=== PATIENT | male | born 1955 | race Caucasian/White ===

== ENCOUNTER 2017-01-05 02:10 | Inpatient (IN) | payer BC ==
[~2017-01-05] VITALS: Ht 185.4 cm; Wt 103.5 kg
[2017-01-05 02:10] VITALS: BP_SYST 152
[2017-01-05] MEDS ORDERED: NACL 0.9% 1,000 ML IV ONE (02:15)
[2017-01-05] MEDS ORDERED: fentaNYL CITRATE/PF 100 MCG/2 ML AMP IVP ONE ×2 (02:15→05:00)
[2017-01-05 02:51] LABS: BASOPHILS % (AUTO) 0.7 % (0.0-2.0); EOSINOPHILS # (AUTO) 0.1 K/uL (0.0-0.4); EOSINOPHILS % (AUTO) 1.9 % (0.0-4.0); HEMATOCRIT 39.3 % (36-54); HEMOGLOBIN 13.6 g/dL (14.0-18.0); LYMPHOCYTES # (AUTO) 1.1 K/uL (1.0-5.5); LYMPHOCYTES % (AUTO) 23.9 % (20.5-51.5); MEAN CORPUSCULAR HEMOGLOBIN 34 pg (27-31); MEAN CORPUSCULAR HGB CONC 35 % (32-36); MEAN CORPUSCULAR VOLUME 97 fL (79.0-98.0); MONOCYTES # (AUTO) 0.8 K/uL (0.0-1.0); MONOCYTES % (AUTO) 16.6 % (1.7-9.3); NEUTROPHILS # (AUTO) 2.8 K/uL (1.8-7.7); NEUTROPHILS % (AUTO) 56.9 % (40.0-70.0); PLATELET COUNT (AUTO) 248 K/uL (130-430); RED BLOOD CELL COUNT(AUTO) 4.07 MIL/uL (4.2-6.2); WHITE BLOOD COUNT (AUTO) 4.8 K/uL (4.8-10.8)
[2017-01-05 03:01] LABS: ANION GAP 11 (5-15); CALCIUM 8.7 mg/dL (8.4-11.0); CHLORIDE 108 mmol/L (98-107); CREATININE 1.29 mg/dL (0.55-1.30); GLUCOSE 139 mg/dL (70-99); SODIUM SERUM 145 mmol/L (136-145); UREA NITROGEN, BLOOD 24 mg/dL (8-21)
[2017-01-05 03:03] LABS: GFR AFRICAN AMERICAN 72 mL/min (>90)
[2017-01-05 03:04] LABS: PROTHROMBIN TIME 10.1 SECS (9.5-12.5)
[2017-01-05 03:09] LABS: ALANINE AMINOTRANSFERASE 30 U/L (12-78); ALBUMIN 3.6 g/dL (3.4-4.8); ASPARTATE AMINOTRANSFERASE 18 U/L (10-37); TOTAL BILIRUBIN 1.4 mg/dL (0.0-1.0)
[2017-01-05] MEDS ORDERED: LEVO125T8 PO (04:56)
[2017-01-05] MEDS ORDERED: PRAV20TA PO (04:58)
[2017-01-05] MEDS ORDERED: ALFU10TA19 PO (04:58)
[2017-01-05] MEDS ORDERED: LORazepam 2 MG/ML VIAL (FOR ER USE) IVP ONE (05:00)
[2017-01-05 06:00] VITALS: BP_SYST 118
[2017-01-05] MEDS: LEVOTHYROXINE SODIUM 0.125 MG TABLET PO SCH (06:53)
[2017-01-05 08:00] VITALS: BP_SYST 135
[2017-01-05] MEDS: CYCLOBENZAPRINE HCL 10 MG TABLET (FLEXERIL) PO SCH ×3 (10:03→21:24)
[2017-01-05 12:30] VITALS: BP_SYST 108
[2017-01-05 16:46] VITALS: BP_SYST 112
[2017-01-05 19:20] VITALS: BP_SYST 115
[2017-01-05] MEDS ORDERED: PRAVASTATIN SODIUM 20 MG TABLET (PRAVACHOL) PO SCH (21:00)
[2017-01-05] MEDS ORDERED: NON-FORMULARY MEDICATION (Alfuzosin Hcl 10 MG) PO SCH (21:00)
[2017-01-05] MEDS ORDERED: TAMSULOSIN HCL 0.4 MG CAP PO SCH (21:00)
[2017-01-05] MEDS ORDERED: SIMVASTATIN 10 MG TABLET PO SCH (21:00)
[2017-01-05] MEDS: NORMAL SALINE 5 ML DISP.SYRIN IVF SCH (21:28)
[2017-01-05] MEDS: HYDROcodone/ACETAMIN 10-325 MG TAB PO PRN (22:09)
[2017-01-05] MEDS ORDERED: MORPHINE SULFATE 10 MG/ML VIAL IVP ONE (23:00)
[2017-01-06] MEDS ORDERED: MORPHINE SULFATE 10 MG/ML VIAL IVP PRN (00:15)
[2017-01-06 01:02] VITALS: BP_SYST 146
[2017-01-06] MEDS: LEVOTHYROXINE SODIUM 0.125 MG TABLET PO SCH (06:15)
[2017-01-06] MEDS: NORMAL SALINE 5 ML DISP.SYRIN IVF SCH ×2 (06:16→13:45)
[2017-01-06 06:33] VITALS: BP_SYST 148
[2017-01-06] MEDS: CYCLOBENZAPRINE HCL 10 MG TABLET (FLEXERIL) PO SCH ×2 (08:59→15:41)
[2017-01-06 09:16] VITALS: BP_SYST 130
[2017-01-06 12:00] VITALS: BP_SYST 155
[2017-01-06] MEDS: HYDROcodone/ACETAMIN 10-325 MG TAB PO PRN (13:45)
[2017-01-06 16:32] VITALS: BP_SYST 151
[2017-01-06 18:24] VITALS: BP_SYST 151
== END 2017-01-06 18:55 | DRG 563 ==
LOC: SED 02:10 → SMU 05:10
PROVIDERS: ADMIT Specialist; ATTEND Specialist
DX: S39.012A Strain of muscle, fascia and tendon of lower back, initial encounter (principal); N13.8 Other obstructive and reflux uropathy; E06.3 Autoimmune thyroiditis; Z96.41 Presence of insulin pump (external) (internal); X58.XXXA Exposure to other specified factors, initial encounter; E10.9 Type 1 diabetes mellitus without complications; E53.8 Deficiency of other specified B group vitamins; E55.9 Vitamin D deficiency, unspecified; E66.9 Obesity, unspecified; E78.2 Mixed hyperlipidemia; N40.1 Benign prostatic hyperplasia with lower urinary tract symptoms; Z79.4 Long term (current) use of insulin; Y93.89 Activity, other specified; Y92.89 Other specified places as the place of occurrence of the external cause; Y99.8 Other external cause status; Z68.30 Body mass index [BMI] 30.0-30.9, adult
CPT/HCPCS: 36415; 72131; 80053; 82962; 84484; 85025; 85610-TC; 85730-TC; 93005; 96374; 96375; 97110-GP; 97116-GP; 97530-GP; 99285; J2060; J2270; J3010; J7030

== ENCOUNTER 2019-04-18 11:44 | Inpatient (IN) | payer BC, OTHER ==
[~2019-04-18] VITALS: Ht 185.4 cm; Wt 98.9 kg
[~2019-04-18 11:44] MED LIST: ALFU10TA19 PO; LEVO125T8 PO; PRAV20TA PO
--- NOTE | 2019-04-18 11:50 | NUR ---
Placed in room 02 . Placed on ekg monitor tech, blood pressure machine and pulse oximeter. To gown for exam. Side rails up. Report given to Julia GUALLPA.
[2019-04-18 11:56] VITALS: BP_SYST 147
--- NOTE | 2019-04-18 11:58 | NUR ---
Patient AAO x 4 BIB ACLS s/p syncopal episode found by son. Patient has a laceration to L occipital head and localized 3/10 pain to L chest. Patient reports feeling dizzy/nauseus and abdominal pain prior to incident. Denies abdominal pain now by dizziness and nausea remain. Patient has history of DM1 with glucose sensor to L abdomen for insulin pump. Accucheck was 155 on triage. Even chest rise and fall with respirations. Will continue to monitor.
[2019-04-18] MEDS ORDERED: LEVO100V IV (12:05)
[2019-04-18] MEDS ORDERED: TADA5TAB3 PO (12:05)
[2019-04-18] MEDS ORDERED: ROSU10TA2 PO (12:05)
[2019-04-18] MEDS ORDERED: ALFU10TA19 PO (12:05)
[2019-04-18] MEDS ORDERED: CELE200C PO (12:05)
[2019-04-18 12:25] LABS: BASOPHILS % (AUTO) 0.3 % (0.0-2.0); EOSINOPHILS % (AUTO) 0.4 % (0.0-4.0); HEMATOCRIT 41.2 % (36-54); HEMOGLOBIN 14.1 g/dL (14.0-18.0); LYMPHOCYTES # (AUTO) 0.2 K/uL (1.0-5.5); LYMPHOCYTES % (AUTO) 2.4 % (20.5-51.5); MEAN CORPUSCULAR HEMOGLOBIN 34 pg (27-31); MEAN CORPUSCULAR HGB CONC 34 % (32-36); MEAN CORPUSCULAR VOLUME 100 fL (79.0-98.0); MONOCYTES # (AUTO) 0.4 K/uL (0.0-1.0); MONOCYTES % (AUTO) 5.2 % (1.7-9.3); NEUTROPHILS # (AUTO) 7.6 K/uL (1.8-7.7); NEUTROPHILS % (AUTO) 91.7 % (40.0-70.0); PLATELET COUNT (AUTO) 236 K/uL (130-430); RED BLOOD CELL COUNT(AUTO) 4.12 MIL/uL (4.2-6.2); RED CELL DISTRIBUTION WIDTH 14.9 % (9.0-15.0); WHITE BLOOD COUNT (AUTO) 8.3 K/uL (4.8-10.8)
[2019-04-18 12:36] LABS: CALCIUM 8.2 mg/dL (8.4-11.0); CREATININE 1.42 mg/dL (0.55-1.30); POTASSIUM 4.3 mmol/L (3.5-5.1)
--- NOTE | 2019-04-18 12:40 | NUR ---
2 episodes of non-bloody emesis. Dr. Baez notified.
[2019-04-18] MEDS ORDERED: ONDANSETRON HCL 4 MG/2 ML VIAL IVP ONE (12:45)
--- NOTE | 2019-04-18 12:45 | NUR ---
Zofran 4mg IVP administered. Pt tachypneic, shaking, reports "I'm freezing." Temp 100.4.
[2019-04-18 12:49] LABS: ALBUMIN 3.6 g/dL (3.4-4.8); TOTAL BILIRUBIN 2.1 mg/dL (0.0-1.0)
--- NOTE | 2019-04-18 12:50 | NUR ---
Dr. Candelario at bedside examining pt
[2019-04-18] MEDS ORDERED: NACL 0.9% 1,000 ML IV ONE ×2 (13:00→14:15)
--- NOTE | 2019-04-18 13:28 | NUR ---
Patient taken to radiology.
--- NOTE | 2019-04-18 14:01 | NUR ---
. Pt , Cynthia called, for update on pt. Would like to be notified of any change in pt status.
[2019-04-18] MEDS ORDERED: LIDOCAINE 1% 10 MG/ML, 20 ML MDV SUBCUT ONE (14:45)
[2019-04-18] MEDS ORDERED: cefTRIAXone 1 GM in D5W 50 ML IV ONE (15:00)
[2019-04-18] MEDS ORDERED: OSELTAMIVIR PHOSPHATE 75 MG CAPSULE PO ONE (15:00)
[2019-04-18] MEDS ORDERED: LIDOCAINE JELLY 5 ML TUBE MM ONE (15:00)
--- NOTE | 2019-04-18 15:19 | NUR ---
Patient medicated lidocaine jelly for laceration per MD order. Patient resting at this time. Addendum: 04/18/19 at 1521 by JAZIEL Note made by
[2019-04-18] MEDS ORDERED: cefTRIAXone 1 GM VIAL ONE (15:22)
--- NOTE | 2019-04-18 16:02 | NUR ---
Patient will be admitted to care of Dr. Dee. Admitted to telemetry unit. Will go to room 101A. Belongings list completed. Complete and up to date summary report printed. SBAR report to be given at bedside with opportunity for questions.
--- NOTE | 2019-04-18 16:10 | NUR ---
Admission Note Received patient from ER with diagnosis of PNEUMONIA/SYNCOPE. Initial Plan of Care discussed-patient verbalized understanding. Oriented to room, call light, pain management and safety.
[2019-04-18 16:27] LABS: BILIRUBIN,URINE NEGATIVE (NEGATIVE); BLOOD, URINE NEGATIVE (NEGATIVE); CLARITY/URINE CLEAR (CLEAR); COLOR,URINE YELLOW (YELLOW); GLUCOSE,URINE 2+ (NEGATIVE); KETONES,URINE 1+ (NEGATIVE); LEUKOCYTE ESTERASE ,URINE NEGATIVE (NEGATIVE); NITRITE, URINE NEGATIVE (NEGATIVE); PH,URINE 5.5 (5.0-8.0); PROTEIN URINE NEGATIVE (NEGATIVE); UROBILINOGEN,URINE 0.2 (0.2-1.0)
--- NOTE | 2019-04-18 16:30 | NUR ---
OPENING NOTES RECEIVED PT FROM E.R., PT IS AAOX4, HAS SLIGHT TEMP. NS FROM E.R. CONTINUED UNTIL COMPLETION. PT ADMITTED FOR PNA AND SYCOPAL EPISODE. PT C/O FO PAIN ON LEFT CHEST WALL. SAFETY PRECAUTION IN PLACE. CALL LIGHT IN REACH. BED IN LOW POSITION. ENCOURAGED PATIENT TO CALL FOR ASSIST AND PAIN MED AND ANY CONCERNS. WILL CONT TO MONITOR.
[2019-04-18 16:40] VITALS: BP_SYST 119
[2019-04-18] MEDS: KCL 20 mEq in NS 1000 mL 1,000 ML IV SCH (17:34)
--- NOTE | 2019-04-18 19:00 | NUR ---
CLOSING NOTES, PT HAS BEEN STABLE, ON AND OFF PAIN ON LEFT CHEST WALL, PROVIDED WITH COLD COMPRESS. PT ATE DINNER. IV FLUIDS INFUSING WELL ON R. AC , NO SWELLING. WILL ENDORSE TO NIGHT NURSE.
--- NOTE | 2019-04-18 19:20 | NUR ---
OPENING NOTES PATIENT AOX4. PATIENT VERBALIZED 5/10 LEFT UPPER CHEST PAIN. MD MADE AWARE OF PATIENTS COMPLAINTS, ORDERED EKG STAT. MD VERBALIZED HE WILL COME AND SEE THE PATIENT. NO SIGNS OF RESPIRATORY DISTRESS NOTED. IVF INFUSING WELL, PATENCY NOTED. CALL LIGHT WITH REACH. PATIENT EDUCATED TO USE CALL LIGHT WHEN ASSISTANCE IS NEEDED, PATIENT VERBALIZED UNDERSTANDING. BED LOCKED AND IN LOWEST POSITION. BED ALARM ON. SAFETY PRECAUTIONS IN PLACE. WILL CONTINUE TO MONITOR PATIENT.
[2019-04-18 20:00] VITALS: BP_SYST 121
--- NOTE | 2019-04-18 21:11 | NUR ---
MD ROUNDS DR. AREVALO CAME AND SEE THE PATIENT. MD VERBALIZED HE WILL PUT ORDERS. NO SIGNS OF RESPIRATORY DISTRESS NOTED. BREATHING EVEN AND UNLABORED. SAFETY PRECAUTIONS IN PLACE. WILL CONTINUE TO MONITOR PATIENT.
[2019-04-18] MEDS ORDERED: ACETAMINOPHEN 325 MG TABLET PO PRN (21:30)
[2019-04-18] MEDS ORDERED: CELECOXIB 200 MG CAPSULE PO SCH (21:30)
[2019-04-18] MEDS: ATORVASTATIN 20 MG TABLET PO SCH (21:52)
[2019-04-18] MEDS: KETOROLAC TROMETHAMINE 15 MG VIAL IVP PRN (21:53)
--- NOTE | 2019-04-18 21:53 | NUR ---
PAIN PATIENT VERBALIZED 6/10 CHEST PAIN. MD ORDERED MEDICATION FOR PAIN. TORADOL 15MG IVP, PATIENT TOLERATED WELL. WILL RE ASSESS. NO SIGNS OF RESPIRATORY DISTRESS NOTED. SAFETY PRECAUTIONS IN PLACE. WILL CONTINUE TO MONITOR PATIENT.
[2019-04-18] MEDS ORDERED: KETOROLAC TROMETHAMINE 30 MG VIAL ONE (22:02)
[2019-04-18] MEDS ORDERED: AZITHROMYCIN 500 MG/VIAL (ZITHROMAX) IV ONE (22:22)
[2019-04-18] MEDS: AZITHROMYCIN 500 MG in NS 250 ML IV SCH (22:49)
--- NOTE | 2019-04-18 23:30 | NUR ---
RN ROUNDS Patient asleep at this time. No signs of respiratory distress and discomfort noted. Breathing even and unlabored. IVF infusing well. Safety precautions in place. Will continue to monitor
[2019-04-19] VITALS: BP_SYST 120
--- NOTE | 2019-04-19 04:30 | NUR ---
N ROUNDS Patient asleep at this time. No signs of respiratory distress and discomfort noted. Breathing even and unlabored. IVF infusing well. Safety precautions in place. Will continue to monitor
[2019-04-19] MEDS: KCL 20 mEq in NS 1000 mL 1,000 ML IV SCH ×2 (05:18→20:23)
--- NOTE | 2019-04-19 05:18 | NUR ---
NOTES NEW IV HUNG AT THIS TIME. PATIENT WENT BACK TO SLEEP. NO SIGNS OF RESPIRATORY DISTRESS AND DISCOMFORT NOTED. BREATHING EVEN AND UNLABORED. SAFETY PRECAUTIONS IN PLACE. WILL CONTINUE TO MONITOR
--- NOTE | 2019-04-19 06:30 | NUR ---
BS CHECKED- REFUSED PATIENT REFUSED BLOOD SUGAR CHECK, PER PATIENT ''I DON'T NEED IT, I CAN CHECK IT, I HAVE MY OWN INSULIN PUMP, BEEN DOING THIS FOR 40 YEARS.''
--- NOTE | 2019-04-19 06:33 | NUR ---
CLOSING NOTES Patient awake at this time. Patient denies pain and discomfort at this time. No signs of respiratory distress and discomfort noted. IVF infusing well, patency noted. Needs attended. Call light with in reach. Bed locked and in lowest position. Safety precautions in place. All needs met throughout the shift. Will continue to monitor patient until endorsed to oncoming shift nurse for continuity of care.
[2019-04-19 07:12] LABS: BASOPHILS % (AUTO) 0.5 % (0.0-2.0); EOSINOPHILS % (AUTO) 0.2 % (0.0-4.0); HEMATOCRIT 35.1 % (36-54); HEMOGLOBIN 12.1 g/dL (14.0-18.0); LYMPHOCYTES # (AUTO) 0.7 K/uL (1.0-5.5); MEAN CORPUSCULAR HEMOGLOBIN 35 pg (27-31); MEAN CORPUSCULAR HGB CONC 35 % (32-36); MEAN CORPUSCULAR VOLUME 100 fL (79.0-98.0); MONOCYTES # (AUTO) 0.8 K/uL (0.0-1.0); NEUTROPHILS # (AUTO) 4.5 K/uL (1.8-7.7); NEUTROPHILS % (AUTO) 75.3 % (40.0-70.0); PLATELET COUNT (AUTO) 195 K/uL (130-430); RED BLOOD CELL COUNT(AUTO) 3.49 MIL/uL (4.2-6.2); RED CELL DISTRIBUTION WIDTH 15.4 % (9.0-15.0); WHITE BLOOD COUNT (AUTO) 5.9 K/uL (4.8-10.8)
[2019-04-19 07:28] LABS: CREATININE 1.37 mg/dL (0.55-1.30); POTASSIUM 4.2 mmol/L (3.5-5.1)
--- NOTE | 2019-04-19 07:36 | NUR ---
Opening Note Patient received resting in bed at this time, no signs of distress noted. Patient complaining of 4/10 pain in chest region, will medicate per MD order. Safety precautions enforced. Call light in reach.
[2019-04-19 07:56] LABS: CALCIUM 7.6 mg/dL (8.4-11.0)
[2019-04-19 08:00] VITALS: BP_SYST 120
[2019-04-19] MEDS: LEVOTHYROXINE SODIUM 0.125 MG TABLET PO SCH (08:18)
[2019-04-19] MEDS: KETOROLAC TROMETHAMINE 15 MG VIAL IVP PRN ×3 (08:18→22:27)
[2019-04-19] MEDS: cefTRIAXone 1 GM in D5W 50 ML IV SCH (08:19)
[2019-04-19] MEDS: ENOXAPARIN SODIUM 40 MG/0.4 ML SYRINGE SUBCUT SCH (08:20)
[2019-04-19] MEDS ORDERED: NON-FORMULARY MEDICATION (Tadalafil 5 MG) PO SCH (09:00)
--- NOTE | 2019-04-19 10:00 | NUR ---
RN Rounds Patient with family at this time. Patient does not complain of pain. Patient in no signs of distress.
[2019-04-19 12:00] VITALS: BP_SYST 133
--- NOTE | 2019-04-19 12:00 | NUR ---
RN Rounds Patient resting at this time. Gave lunch tray, patient requested to have it to the side for later. Patient in no signs of distress.
--- NOTE | 2019-04-19 14:00 | NUR ---
RN Rounds Patient resting at this time. Patient medicated for pain as ordered by MD.
--- NOTE | 2019-04-19 15:30 | NUR ---
Dietitian Recommendations * Recommend continuing regular, cardiac diet * Encourage increase PO intakes LP, RD Please refer to Nutrition Assessment for details. Addendum: 04/19/19 at [address] Amended: Links added.
[2019-04-19 16:00] VITALS: BP_SYST 113
--- NOTE | 2019-04-19 16:00 | NUR ---
RN Rounds Patient resting at this time. Safety precautions enforced, call light in reach.
--- NOTE | 2019-04-19 18:00 | NUR ---
RN Rounds Patient eating at this time, no signs of distress noted. Safety precautions enforced.
--- NOTE | 2019-04-19 19:15 | NUR ---
OPENING NOTES PATIENT AOX4. NO SIGNS OF RESPIRATORY DISTRESS NOTED. DENIES PAIN AND DISCOMFORT AT THIS TIME. NEEDS ATTENDED, IVF INFUSING WELL, PATENCY NOTED. CALL LIGHT WITH REACH. PATIENT EDUCATED TO USE CALL LIGHT WHEN ASSISTANCE IS NEEDED, PATIENT VERBALIZED UNDERSTANDING. BED LOCKED AND IN LOWEST POSITION. BED ALARM ON. SAFETY PRECAUTIONS IN PLACE. WILL CONTINUE TO MONITOR PATIENT.
--- NOTE | 2019-04-19 19:17 | NUR ---
Closing Note Patient endorsed to awake overnight counselor RN using SBAR format. Patient in stable condition at this time, no signs of distress noted. Safety precautions enforced. Patient questions answered. Call light in reach.
[2019-04-19] MEDS ORDERED: ALFUZOSIN HCL PO SCH (21:00)
[2019-04-19] MEDS: ATORVASTATIN 20 MG TABLET PO SCH (22:26)
[2019-04-19] MEDS: AZITHROMYCIN 500 MG in NS 250 ML IV SCH (22:27)
--- NOTE | 2019-04-19 22:27 | NUR ---
MED PASS Due medication given at this time, patient tolerated well. Patient educated on medications that is given, patient verbalized understanding. No signs of respiratory distress and discomfort noted. Safety precautions in place. Will continue to monitor patient.
[2019-04-20 00:34] VITALS: BP_SYST 122
--- NOTE | 2019-04-20 07:01 | NUR ---
CLOSING NOTES Patient awake at this time. Patient denies pain and discomfort at this time. Patient checked its own BS. No signs of respiratory distress and discomfort noted. IVF infusing well, patency noted. Needs attended. Call light with in reach. Bed locked and in lowest position. Safety precautions in place. All needs met throughout the shift. Will continue to monitor patient until endorsed to oncoming shift nurse for continuity of care.
[2019-04-20] MEDS: KCL 20 mEq in NS 1000 mL 1,000 ML IV SCH (07:45)
--- NOTE | 2019-04-20 08:30 | NUR ---
Patient alert and oriented complaints of muscle soreness in torso. asessed laceration to top of head, which is dry and intact without drainage, bleeding, or inflammation. malorie are intact
[2019-04-20] MEDS: cefTRIAXone 1 GM in D5W 50 ML IV SCH (09:39)
[2019-04-20] MEDS: LEVOTHYROXINE SODIUM 0.125 MG TABLET PO SCH (09:40)
[2019-04-20] MEDS: ENOXAPARIN SODIUM 40 MG/0.4 ML SYRINGE SUBCUT SCH (09:40)
--- NOTE | 2019-04-20 10:45 | NUR ---
CONSULTATION PAGED REASON FOR CONSULTATION:G-TUBE [employer] WAS CONSULT CALLED?Y PERSON WHO WAS NOTIFIED:DAMON CONSULTING PHYSICIAN:ARLENE DONOHUE [employer]ING CLE[employer]ER SPECIALTY:GI CASING CLEANER PHONE NUMBER:[phone] REQUESTING PHYSICIAN:SAJI FLOREZ
[2019-04-20 14:35] VITALS: BP_SYST 122
== END 2019-04-20 15:50 | disposition home or self-care (01) | DRG 178 ==
LOC: SED 11:44 → STU 15:40
PROVIDERS: ADMIT Family Medicine; ATTEND Family Medicine
DX: J15.6 Pneumonia due to other Gram-negative bacteria (principal); E87.2 Acidosis; N17.9 Acute kidney failure, unspecified; E03.9 Hypothyroidism, unspecified; E11.9 Type 2 diabetes mellitus without complications; E78.5 Hyperlipidemia, unspecified; E78.00 Pure hypercholesterolemia, unspecified; S29.9XXA Unspecified injury of thorax, initial encounter; W18.39XA Other fall on same level, initial encounter; E86.0 Dehydration; Z79.899 Other long term (current) drug therapy; Y93.89 Activity, other specified; Y92.89 Other specified places as the place of occurrence of the external cause; Y99.8 Other external cause status
CPT/HCPCS: 36415; 70450-TC; 71045; 80048; 80053; 81003; 82550-TC; 83605; 84484; 85025; 86710; 87040-TC; 87086; 93005; 96361; 96365; 96375; 99285; G0378; G9035; J0456; J0696; J1650; J1885; J2405; J3480; J7030; J7050; J7060

== ENCOUNTER 2019-07-28 03:43 | Emergency (ER) | payer BC, OTHER ==
[~2019-07-28] VITALS: Ht 185.4 cm; Wt 99.8 kg
[2019-07-28 03:43] VITALS: BP_SYST 139
[~2019-07-28 03:43] MED LIST changes: +CELE200C PO; +LEVO100V IV; +ROSU10TA2 PO; +TADA5TAB3 PO
--- NOTE | 2019-07-28 03:45 | NUR ---
BROUGHT BACK TO BED #5 AND TRIAGED. REPORT GIVEN TO VIRAJ
--- NOTE | 2019-07-28 04:05 | NUR ---
ER at bedside examining patient.
--- NOTE | 2019-07-28 04:12 | NUR ---
FRAZIER CATHETER IRRIGATED WITH STERILE WATER. TOLERATED WELL, URINE NOW DRAINING NORMALLY TO FRAZIER. NEW LEG BAG PLACED. PT DENIES DISCOMFORT OR PAIN AT THIS TIME.
--- NOTE | 2019-07-28 04:18 | NUR ---
Patient given written and verbal discharge instructions and verbalizes understanding. ER MD DR. STARKS discussed with patient the results and treatment provided. Patient in stable condition. ID arm band removed. Patient educated on pain management and to follow up with PMD. Pain Scale 0/10. Opportunity for questions provided and answered. Medication side effect fact sheet provided.
== END 2019-07-28 04:21 | disposition home or self-care (01) ==
LOC: SED 03:43
DX: R33.9 Retention of urine, unspecified (principal); N40.0 Benign prostatic hyperplasia without lower urinary tract symptoms; E11.9 Type 2 diabetes mellitus without complications; E78.00 Pure hypercholesterolemia, unspecified; Z79.899 Other long term (current) drug therapy
CPT/HCPCS: 99281